=== PATIENT | female | born 1960 | race Caucasian/White ===

== ENCOUNTER 2019-11-08 19:29 | Emergency (ER) | payer MEDICAID ==
[~2019-11-08] VITALS: Ht 162.6 cm; Wt 90.3 kg
[2019-11-08 20:02] VITALS: BP 145/87
== END 2019-11-08 21:17 | disposition home or self-care (01) ==
LOC: MED 19:29
DX: S06.0X9A Concussion with loss of consciousness of unspecified duration, initial encounter (principal); V89.2XXA Person injured in unspecified motor-vehicle accident, traffic, initial encounter; G89.29 Other chronic pain; Z90.49 Acquired absence of other specified parts of digestive tract; Z76.0 Encounter for issue of repeat prescription; Y93.89 Activity, other specified; Y92.89 Other specified places as the place of occurrence of the external cause; Y99.8 Other external cause status
CPT/HCPCS: 99281

== ENCOUNTER 2020-03-19 23:03 | Emergency (ER) | payer MEDICAID ==
[~2020-03-19] VITALS: Ht 162.6 cm; Wt 81.6 kg
[2020-03-19 23:08] VITALS: BP 154/80
--- NOTE | 2020-03-19 23:18 | NUR ---
MARTINA GALER TO ER BED 4
--- NOTE | 2020-03-19 23:20 | NUR ---
RECEIVED IN BED 4 FROM TRIAGE S/P TRIP AND FALL WHILE AT [employer] APPROXIMATELY 4 HRS AGO. PT DENIES KO. ABRASION NOTED ACROSS BRIDGE OF NOSE. IS AWAKE, ALERT AND ORIENTED.
[2020-03-20 00:14] LABS: BASOPHILS % (AUTO) 0.3 % (0.0-2.0); EOSINOPHILS # (AUTO) 0.4 K/uL (0-0.4); HEMATOCRIT 44.4 % (36-48); HEMOGLOBIN 15.1 g/dL (12.0-16.0); LYMPHOCYTES % (AUTO) 32.4 % (20.5-51.1); MEAN CORPUSCULAR HEMOGLOBIN 30 pg (27-31); MEAN CORPUSCULAR HGB CONC 34 g/dL (33-37); MEAN CORPUSCULAR VOLUME 86.7 fL (80-94); MONOCYTES # (AUTO) 0.7 K/uL (0.8-1.0); MONOCYTES % (AUTO) 5.6 % (1.7-9.3); NEUTROPHILS # (AUTO) 7.2 K/uL (1.8-7.7); NEUTROPHILS % (AUTO) 58.7 % (42.2-75.2); PLATELET COUNT (AUTO) 272 K/uL (140-450); RED BLOOD CELL COUNT(AUTO) 5.12 MIL/uL (4.20-5.40); RED CELL DISTRIBUTION WIDTH 14.2 % (11.6-13.7); WHITE BLOOD COUNT (AUTO) 12.3 K/uL (4.8-10.8)
[2020-03-20 00:27] LABS: PROTHROMBIN TIME 10.2 secs (10.8-13.4)
[2020-03-20 00:30] LABS: ALBUMIN 3.7 g/dL (3.4-5.0); ANION GAP 11.3 (8-16); CARBON DIOXIDE 29.9 mmol/L (21-32); CREATININE 0.9 mg/dL (0.6-1.3); POTASSIUM 3.2 mmol/L (3.5-5.1); TOTAL BILIRUBIN 0.8 mg/dL (0.0-1.0)
--- NOTE | 2020-03-20 01:25 | NUR ---
RETURNED FROM RADIOLOGY
[2020-03-20] MEDS ORDERED: MORPHINE SULFATE 4 MG/ML SYR ONE (01:28)
[2020-03-20] MEDS ORDERED: ONDANSETRON 4 MG ODT ONE (01:29)
[2020-03-20] MEDS: MORPHINE SULFATE 4 MG/ML SYR IM ONE (01:37)
[2020-03-20] MEDS: ONDANSETRON 4 MG ODT PO ONE (01:38)
[2020-03-20] MEDS: POTASSIUM CHLORIDE 10 MEQ TABER PO ONE (01:43)
--- NOTE | 2020-03-20 02:30 | NUR ---
READY FOR DISCHARGE.
[2020-03-20 02:40] VITALS: BP 138/74
--- NOTE | 2020-03-20 02:40 | NUR ---
Patient discharged with v/s stable. Written and verbal after care instructions given and explained. Patient alert, oriented and verbalized understanding of instructions. Wheel Chair Assisted with to car. All questions addressed prior to discharge. ID band removed. Patient advised to follow up with PMD. Rx of IBUPROFEN given. Patient educated on indication of medication including possible reaction and side effects. Opportunity to ask questions provided and answered.
== END 2020-03-20 02:40 | disposition home or self-care (01) ==
LOC: MED 23:03
DX: S46.911A Strain of unspecified muscle, fascia and tendon at shoulder and upper arm level, right arm, initial encounter (principal); S13.8XXA Sprain of joints and ligaments of other parts of neck, initial encounter; S83.8X2A Sprain of other specified parts of left knee, initial encounter; S83.8X1A Sprain of other specified parts of right knee, initial encounter; S00.31XA Abrasion of nose, initial encounter; S09.90XA Unspecified injury of head, initial encounter; R74.01 Elevation of levels of liver transaminase levels; E87.6 Hypokalemia; R74.8 Abnormal levels of other serum enzymes; W18.39XA Other fall on same level, initial encounter; Y93.89 Activity, other specified; Y92.89 Other specified places as the place of occurrence of the external cause; Y99.8 Other external cause status
CPT/HCPCS: 36415; 70450; 70486; 72125; 73030; 73562; 80053; 85025; 85610; 90471; 90715; 96372; 99285; J2270; Q0162

== ENCOUNTER 2020-07-28 21:38 | Emergency (ER) | payer MEDICAID ==
[~2020-07-28] VITALS: Ht 162.6 cm; Wt 80.7 kg
[2020-07-28 21:48] VITALS: BP 129/72
--- NOTE | 2020-07-28 22:03 | NUR ---
PT W/C ASSITED TO BED #7
--- NOTE | 2020-07-28 22:04 | NUR ---
URINE AT BEDSIDE
--- NOTE | 2020-07-28 22:15 | NUR ---
59 Y/O FEMALE CAME TO THE ED C/O BODY ACHES, GENERALIZED WEAKNESS, HEADACHE, DIZZYNESS, NAUSEA AND VOMITTING. PT STATES "I HAVE GENERALIZED BODY PAIN, WEAKNESS, HEADACHE, LOWER BACK PAIN, NAUSEA AND VOMITTING X 1 WEEK NOW. MY HEAD FEELS PRESSURE, AND I HAD A FEVER OF 102F, AND TOOK TYLENOL PRIOR TO ARRIVAL." VSS; PATIENT POSITIONED FOR COMFORT; HOB ELEVATED; BEDRAILS UP X2; BED DOWN. ER MD MADE AWARE OF PT STATUS. TWILA PMH: KIDNEY INFECTION
[2020-07-28 22:26] LABS: APPEARANCE,URINE CLEAR (CLEAR); BILIRUBIN,URINE 1+ (NEGATIVE); BLOOD, URINE 1+ (NEGATIVE); COLOR,URINE ORANGE (YELLOW); LEUKOCYTE ESTERASE ,URINE TRACE (NEGATIVE); NITRITE, URINE POSITIVE (NEGATIVE); UGLUCOSE NEGATIVE (NEGATIVE)
[2020-07-28 22:26] LABS: BASOPHILS # (AUTO) 0.1 K/uL (0.00-0.22); BASOPHILS % (AUTO) 0.6 % (0.0-2.0); EOSINOPHILS % (AUTO) 0.4 % (0.0-4.0); HEMATOCRIT 40.7 % (36-48); HEMOGLOBIN 13.7 g/dL (12.0-16.0); LYMPHOCYTES # (AUTO) 2.5 K/uL (2.5-16.5); LYMPHOCYTES % (AUTO) 18.7 % (20.5-51.1); MEAN CORPUSCULAR HEMOGLOBIN 29 pg (27-31); MEAN CORPUSCULAR HGB CONC 34 g/dL (33-37); MEAN CORPUSCULAR VOLUME 87.2 fL (80-94); MONOCYTES % (AUTO) 7.2 % (1.7-9.3); NEUTROPHILS # (AUTO) 9.7 K/uL (1.8-7.7); NEUTROPHILS % (AUTO) 73.1 % (42.2-75.2); PLATELET COUNT (AUTO) 263 K/uL (140-450); RED BLOOD CELL COUNT(AUTO) 4.67 MIL/uL (4.20-5.40); RED CELL DISTRIBUTION WIDTH 14.4 % (11.6-13.7); WHITE BLOOD COUNT (AUTO) 13.2 K/uL (4.8-10.8)
[2020-07-28 22:43] LABS: ANION GAP 13.8 (8-16); CARBON DIOXIDE 26.8 mmol/L (21-32); CREATININE 0.8 mg/dL (0.6-1.3); POTASSIUM 3.6 mmol/L (3.5-5.1)
[2020-07-28 22:44] LABS: RBC,URINE 0-5 /HPF (0-5); WBC,URINE 60-80 /HPF (0-5)
[2020-07-28 22:52] LABS: ALBUMIN 3.6 g/dL (3.4-5.0); TOTAL BILIRUBIN 1.3 mg/dL (0.0-1.0)
[2020-07-28] MEDS ORDERED: NACL 0.9% 1,000 ML IV ONE (22:55)
[2020-07-28] MEDS ORDERED: KETOROLAC 15 MG/ML VIAL IVP ONE (23:00)
[2020-07-28] MEDS ORDERED: ONDANSETRON 4 MG/2 ML VIAL IVP ONE (23:00)
[2020-07-28] MEDS ORDERED: cefTRIAXone 1,000 MG VIAL ONE (23:05)
[2020-07-29] MEDS ORDERED: CEPH-588 PO ×2 (01:10→01:14)
[2020-07-29] MEDS ORDERED: ONDA-24 SL (01:13)
[2020-07-29 01:30] VITALS: BP 129/72
--- NOTE | 2020-07-29 01:30 | NUR ---
Patient discharged with v/s stable. Written and verbal after care instructions given and explained. Patient alert, oriented and verbalized understanding of instructions. Ambulatory with steady gait. All questions addressed prior to discharge. ID band removed. Patient advised to follow up with PMD. Rx of KEFLEX AND ZOFRAN given. Patient educated on indication of medication including possible reaction and side effects. Opportunity to ask questions provided and answered.
[2020-07-31] MEDS ORDERED: CIPR500T4 PO (16:40)
== END 2020-07-29 01:30 | disposition home or self-care (01) ==
LOC: MED 21:38
DX: N12 Tubulo-interstitial nephritis, not specified as acute or chronic (principal); R11.10 Vomiting, unspecified; Z79.899 Other long term (current) drug therapy
CPT/HCPCS: 36415; 80053; 81001; 85025; 87040; 87086; 96365; 96375; 99284; J0696; J1885; J2405